=== PATIENT | female | born 1995 | race Caucasian/White ===

== ENCOUNTER 2016-08-20 10:26 | Outpatient (RCR) | payer BC ==
--- NOTE | 2016-08-15 15:40 | Diagnostic Imaging Report ---
INDICATION: Nephrolithiasis. TECHNIQUE: KUB at 2:32 p.m. FINDINGS: Bowel gas pattern is normal. There are no pathologic masses or calcifications seen. Osseous structures appear normal. IMPRESSION: Negative abdomen. Dictated by: Dictated on workstation # [id number]
[~2016-08-20 10:26] MED LIST: HYDR-3876 PO; HYDR-757 PO; NITR-65 PO; NORE-73 PO; PHEN-640 PO; oral birth control
[2016-08-24 16:41] LABS: STONE RISK AMMONIUM 49 mEq/24hr (14-62); STONE RISK BRUSHITE 3.37 (< 2.00); STONE RISK CA OXALATE 1.02 (< 2.00); STONE RISK CALCIUM 368 mg/day (< 250); STONE RISK CITRATE 472 mg/day (> 320); STONE RISK CREATININE 2417 mg/day (600-1800); STONE RISK MAGNESIUM 166 mg/day (> 60); STONE RISK OXALATE 29 mg/day (< 45); STONE RISK PH 6.9 (5.5-7.0); STONE RISK PHOSPHOROUS 1054 mg/day (< 1100); STONE RISK POTASSIUM 86 mEq/24hr (19-135); STONE RISK SODIUM 268 mEq/24hr (< 200); STONE RISK SODIUM URATES 2.76 (< 2.00); STONE RISK STRUVITE 7.19 (< 75.00); STONE RISK SULFITE 30 mmol/day (< 30); STONE RISK TOTAL VOLUME 3.03 L/day (> 2.00); STONE RISK URIC ACID 1118 mg/day (< 700); STONE RISK URIC ACID SAT 0.23 (< 2.00)
== END 2016-11-13 | disposition home or self-care (01) ==
LOC: RAD 10:26
PROVIDERS: ATTEND Urology
DX: N20.0 Calculus of kidney (principal)
CPT/HCPCS: 74000; 82140; 82340; 82507; 82570; 83735; 83945; 83986; 84105; 84133; 84300; 84392; 84560

== ENCOUNTER → 2018-09-17 | Outpatient (CLI) | payer BC ==
[~2018-09-17] MED LIST changes: +HYDR-4226 PO; -HYDR-757 PO
--- NOTE | 2018-09-17 18:09 | Diagnostic Imaging Report ---
EXAMINATION: Supine abdomen at 5:40 p.m. INDICATION: Bloating and constipation. A single view was obtained. FINDINGS: In the interval since the prior exam of 08/15/2016, the amount of gas within the ascending and transverse colon has increased. There is also some gas in the distal descending colon and in the small bowel. This appearance, however, is nonspecific. There is no sign of a bowel obstruction. There is only a moderate amount of fecal material throughout the ascending colon. There is no mass or organomegaly identified. The osseous structures are intact. IMPRESSION: 1. There has been an increase in the amount of gas throughout the ascending and transverse colon since the prior exam. However, this appearance is nonspecific. There is no evidence for a bowel obstruction. 2. There is only a moderate amount of fecal material throughout the ascending colon. 3. There is no acute abnormality noted otherwise. Dictated by: Dictated on workstation # [id number]
== END ==
LOC: RAD 17:31
PROVIDERS: ATTEND Nurse Practitioner Family
DX: R14.0 Abdominal distension (gaseous) (principal); K59.00 Constipation, unspecified
CPT/HCPCS: 74018

== ENCOUNTER → 2020-04-04 | Outpatient (CLI) | payer BC | LOC: LAB 19:56 | PROVIDERS: ATTEND Nurse Practitioner | DX: J02.9 Acute pharyngitis, unspecified (principal); R50.9 Fever, unspecified; R52 Pain, unspecified; Z20.828 Contact with and (suspected) exposure to other viral communicable diseases | CPT/HCPCS: 87804; U0002; 87635 ==

== ENCOUNTER → 2021-04-11 | Outpatient (CLI) | payer BC ==
[~2021-04-11] MED LIST changes: -HYDR-3876 PO; +HYDR-3920 PO
--- NOTE | 2021-04-11 07:54 | Diagnostic Imaging Report ---
Indication: Kidney stones A supine view the abdomen shows no abnormally dilated loops of bowel. No urinary tract stones are evident. There is no bony abnormality. IMPRESSION: No acute abnormality is seen. Dictated by: Dictated on workstation # [id number]
--- NOTE | 2021-04-11 07:54 | Diagnostic Imaging Report ---
PROCEDURE: CT urinary tract, rule out kidney stone. TECHNIQUE: Multiple contiguous axial images were obtained through the abdomen and pelvis without the use of intravenous contrast. Auto Exposure Controls were utilized during the CT exam to meet ALARA standards for radiation dose reduction. INDICATION: Left kidney pain. Left flank pain Comparison is made with a prior study from 07/02/2015. Lung bases are clear. The liver, gallbladder and bile ducts are normal. The spleen, pancreas and adrenals are normal. Kidneys are normal in size, shape and position. There is no mass, calculus or hydronephrosis seen on either side. The ureters and bladder are normal. There is no adnexal mass. There is fecal material in the left half of the colon consistent with mild constipation. There are no abnormally dilated loops of bowel with no acute bowel abnormality evident. A portion of the appendix may be visualized and is normal where seen. There is no ascites. There is no adenopathy. There is no acute bony abnormality. IMPRESSION: No acute abnormality is seen. Dictated by: Dictated on workstation # [id number]
== END ==
LOC: RAD 07:07
PROVIDERS: ATTEND Urology
DX: N20.0 Calculus of kidney (principal)
CPT/HCPCS: 74018; 74176

== ENCOUNTER 2021-05-13 17:45 | Emergency (ER) | payer BC ==
[~2021-05-13] VITALS: Ht 177 cm; Wt 68.0 kg
[2021-05-13 18:13] LABS: BASOPHILS # (AUTO) 0.1 10^3/uL (0.0-0.1); BASOPHILS % (AUTO) 1 % (0-10); EOSINOPHILS % (AUTO) 0 % (0-10); HEMATOCRIT 39 % (35-52); HEMOGLOBIN 13.3 g/dL (11.5-16.0); LYMPHOCYTES % (AUTO) 6 % (12-44); MEAN CORPUSCULAR HEMOGLOBIN 32 pg (25-34); MEAN CORPUSCULAR HGB CONC 34 g/dL (32-36); MEAN CORPUSCULAR VOLUME 94 fL (80-99); MEAN PLATELET VOLUME 9.5 fL (9.0-12.2); MONOCYTES # (AUTO) 1.4 10^3/uL (0.0-1.0); MONOCYTES % (AUTO) 9 % (0-12); NEUTROPHILS % (AUTO) 84 % (42-75); PLATELET COUNT 253 10^3/uL (130-400); WHITE BLOOD COUNT 15.5 10^3/uL (4.3-11.0)
[2021-05-13 18:15] LABS: BILIRUBIN,URINE NEGATIVE (NEGATIVE); CLARITY,URINE CLOUDY; COLOR,URINE YELLOW; GLUCOSE, URINE (UA) NEGATIVE (NEGATIVE); KETONES,URINE NEGATIVE (NEGATIVE); LEUKOCYTE ESTERASE ,URINE 2+ (NEGATIVE); NITRITE,URINE POSITIVE (NEGATIVE); PROTEIN,URINE 1+ (NEGATIVE)
[2021-05-13] MEDS ORDERED: cefTRIAXone 1,000 MG in WATER (STERILE) FOR INJECTION 10 ML IV ONE (18:15)
[2021-05-13] MEDS ORDERED: IBUPROFEN 800 MG (MOTRIN) TAB PO ONE (18:15)
[2021-05-13] MEDS ORDERED: fentaNYL INJ 100 MCG/2 ML AMP IVP PRN (18:15)
[2021-05-13] MEDS ORDERED: LACTATED RINGERS 1,000 ML IV SCH (18:15)
[2021-05-13 18:25] LABS: ALBUMIN 3.8 GM/DL (3.2-4.5); POTASSIUM 3.7 MMOL/L (3.6-5.0)
[2021-05-13 18:26] LABS: CALCIUM 9.5 MG/DL (8.5-10.1)
[2021-05-13 18:28] LABS: TOTAL PROTEIN 6.7 GM/DL (6.4-8.2)
--- NOTE | 2021-05-13 18:28 | ED GU-Female ---
General Chief Complaint: - Reproductive Stated Complaint: LOW BACK PAIN/HIS OF KIDNEY STONES Source: patient Exam Limitations: no limitations (JIM CURRIE APRN) History of Present Illness Date Seen by Provider: May 13, 2021 Time Seen by Provider: 18:00 Initial Comments ER with a 2 to 3-day history of bilateral flank pain right greater than left, low back pain, general malaise and fever. Timing/Duration: constant, getting worse Severity/Quality: moderate Location: unknown Radiation: none Activities at Onset: none Associated Symptoms: nausea/vomiting (JIM CURRIE APRN) Allergies and Home Medications Allergies Coded Allergies: No Known Drug Allergies (Unverified , 07/02/15) Patient Home Medication List Home Medication List Reviewed: Yes (JIM CURRIE APRN) Hydrocodone/Acetaminophen (Lorcet Hd 10-325 mg Tablet) 1 Each Tablet, 1-2 TAB PO Q4H PRN for PAIN Prescribed by: MATEUS URIAS on 07/04/15 1118 Levofloxacin (Levofloxacin) 500 Mg Tablet, 500 MG PO DAILY Prescribed by: JIM CURRIE on 05/13/21 1909 Nitrofurantoin Monohyd/M-Cryst (Macrobid 100 mg Capsule) 100 Mg Capsule, 100 MG PO BID Prescribed by: MATEUS URIAS on 07/04/15 1115 Norethindrone AC-Eth Estradiol (Neelima 1.5 mg-30 Mcg Tablet) 1 Each Tablet, 1 TAB PO DAILY, (Reported) Entered as Reported by: RADHA PAZ on 07/03/15 1016 Phenazopyridine HCl (Pyridium) 200 Mg Tablet, 200 MG PO TID PRN for PAIN Prescribed by: MATEUS URIAS on 07/04/15 1118 Review of Systems Review of Systems Constitutional: see HPI, chills, fever EENTM: see HPI Respiratory: no symptoms reported Cardiovascular: no symptoms reported Gastrointestinal: No abdominal pain, No nausea, No vomiting Genitourinary: no symptoms reported Musculoskeletal: no symptoms reported Skin: no symptoms reported Psychiatric/Neurological: No Symptoms Reported Endocrine: No Symptoms Reported (JIM CURRIE APRN) Past Dmjimsi-Djtuki-Jpvabt Hx Immunizations Up To Date Tetanus Booster (TDap): Unknown (JIM CURRIE APRN) Past Medical History Currently Using CPAP: No Currently Using BIPAP: No Reproductive Disorders: No Sexually Transmitted Disease: No HIV/AIDS: No (JIM CURRIE APRN) Family Medical History Diabetes mellitus 19 FATHER FH: hypothyroidism 19 MOTHER FHx: gluten enteropathy 19 MOTHER Physical Exam Vital Signs Vital Signs - First Documented 05/13/21 17:50 Temp 38.2 Pulse 124 Resp 18 B/P (MAP) 143/87 (105) Pulse Ox 98 O2 Delivery Room Air (YOEL CHU DO) Vital Signs Capillary Refill : (JIM CURRIE APRN) Height, Weight, BMI Height: 5'10.00" Weight: 150lbs. 0.0oz. 68.488438uc; BMI Method: General Appearance: WD/WN, no apparent distress HEENT: PERRL/EOMI, normal ENT inspection Neck: non-tender, full range of motion Cardiovascular: no murmur, tachycardia Respiratory: no respiratory distress, no accessory muscle use Gastrointestinal: normal bowel sounds, non tender, soft Back: CVA tenderness (R), CVA tenderness (L) Extremities: normal range of motion, non-tender Neurologic/Psychiatric: alert, normal mood/affect, oriented x 3 Skin: normal color, warm/dry (JIM CURRIE APRN) Focused Exam Lactate Level 05/13/21 18:05: Lactic Acid Level 1.48 (YOEL HCU DO) Progress/Results/Core Measures Suspected Sepsis SIRS Temperature: Pulse: Respiratory Rate: Laboratory Tests 05/13/21 18:05: White Blood Count 15.5H Blood Pressure / Mean: 05/13/21 18:05: Lactic Acid Level 1.48 Laboratory Tests 05/13/21 18:05: Creatinine 0.93, INR Comment 1.1, Platelet Count 253, Total Bilirubin 0.7 (JIM CURRIE APRN) Results/Orders Lab Results Laboratory Tests Test 05/13/21 17:52 05/13/21 18:05 Range/Units Urine Color YELLOW Urine Clarity CLOUDY Urine pH 7.0 5-9 Urine Specific Firestone 1.015 L 1.016-1.022 Urine Protein 1+ H NEGATIVE Urine Glucose (UA) NEGATIVE NEGATIVE Urine Ketones NEGATIVE NEGATIVE Urine Nitrite POSITIVE H NEGATIVE Urine Bilirubin NEGATIVE NEGATIVE Urine Urobilinogen 1.0 < = 1.0 MG/DL Urine Leukocyte Esterase 2+ H NEGATIVE Urine RBC (Auto) 3+ H NEGATIVE Urine RBC 25-50 H /HPF Urine WBC 25-50 H /HPF Urine Crystals NONE /LPF Urine Bacteria MODERATE H /HPF Urine Casts NONE /LPF Urine Mucus NEGATIVE /LPF Urine Culture Indicated CULTURE PENDING White Blood Count 15.5 H 4.3-11.0 10^3/uL Red Blood Count 4.17 3.80-5.11 10^6/uL Hemoglobin 13.3 11.5-16.0 g/dL Hematocrit 39 35-52 % Mean Corpuscular Volume 94 80-99 fL Mean Corpuscular Hemoglobin 32 25-34 pg Mean Corpuscular Hemoglobin Concent 34 32-36 g/dL Red Cell Distribution Width 11.7 10.0-14.5 % Platelet Count 253 130-400 10^3/uL Mean Platelet Volume 9.5 9.0-12.2 fL Immature Granulocyte % (Auto) 1 % Neutrophils (%) (Auto) 84 H 42-75 % Lymphocytes (%) (Auto) 6 L 12-44 % Monocytes (%) (Auto) 9 0-12 % Eosinophils (%) (Auto) 0 0-10 % Basophils (%) (Auto) 1 0-10 % Neutrophils # (Auto) 13.0 H 1.8-7.8 10^3/uL Lymphocytes # (Auto) 1.0 1.0-4.0 10^3/uL Monocytes # (Auto) 1.4 H 0.0-1.0 10^3/uL Eosinophils # (Auto) 0.0 0.0-0.3 10^3/uL Basophils # (Auto) 0.1 0.0-0.1 10^3/uL Immature Granulocyte # (Auto) 0.1 0.0-0.1 10^3/uL Neutrophils % (Manual) 83 % Lymphocytes % (Manual) 5 % Monocytes % (Manual) 7 % Basophils % (Manual) 1 % Band Neutrophils 4 % Blood Morphology Comment NORMAL Prothrombin Time 14.7 12.2-14.7 SEC INR Comment 1.1 0.8-1.4 Activated Partial Thromboplast Time 41 H 24-35 SEC Sodium Level 135 135-145 MMOL/L Potassium Level 3.7 3.6-5.0 MMOL/L Chloride Level 104 98-107 MMOL/L Carbon Dioxide Level 19 L 21-32 MMOL/L Anion Gap 12 5-14 MMOL/L Blood Urea Nitrogen 9 7-18 MG/DL Creatinine 0.93 0.60-1.30 MG/DL Estimat Glomerular Filtration Rate 73 BUN/Creatinine Ratio 10 Glucose Level 118 H 70-105 MG/DL Lactic Acid Level 1.48 0.50-2.00 MMOL/L Calcium Level 9.5 8.5-10.1 MG/DL Corrected Calcium 9.7 8.5-10.1 MG/DL Total Bilirubin 0.7 0.1-1.0 MG/DL Aspartate Amino Transf (AST/SGOT) 17 5-34 U/L Alanine Aminotransferase (ALT/SGPT) 19 0-55 U/L Alkaline Phosphatase 61 40-136 U/L Total Protein 6.7 6.4-8.2 GM/DL Albumin 3.8 3.2-4.5 GM/DL Serum Test, Qualitative NEGATIVE NEGATIVE (YOEL CHU DO) Medications Given in ED Current Medications Medications Dose Ordered Sig/Alexa Route Start Time Stop Time Status Last Admin Dose Admin Ceftriaxone Sodium 1000 mg/ Sterile Water 10 ml @ 200 mls/hr ONCE ONCE IV 05/13/21 18:15 05/13/21 18:17 DC 05/13/21 18:20 200 MLS/HR Fentanyl Citrate 25 mcg ONCE PRN IVP 05/13/21 18:15 05/13/21 19:27 DC 05/13/21 18:15 25 MCG Ibuprofen 800 mg ONCE ONCE PO 05/13/21 18:15 05/13/21 18:16 DC 05/13/21 18:15 800 MG (YOEL CHU DO) Vital Signs/I&O 05/13/21 05/13/21 17:50 19:21 Temp 38.2 Pulse 124 104 Resp 18 18 B/P (MAP) 143/87 (105) 114/82 Pulse Ox 98 98 O2 Delivery Room Air Room Air (YOEL CHU DO) Vital Signs/I&O Capillary Refill : (JIM CURRIE APRN) Departure Communication (Admissions) 1906-heart rate down to 101. Blood pressure 140s over 70s. Leukocytosis. She does have a pyelonephritis clinically supported by labs and urine. We will give Rocephin and discharged home on Levaquin. A couple of months ago she had a urinary tract infection and was given Augmentin but does not feel like she ever got over it. She is not nauseated though I will give her a prescription for Zofran in case she becomes nauseated this evening. (JIM CURRIE APRN) Impression Primary Impression: Pyelonephritis Disposition: 01 HOME, SELF-CARE Condition: Stable Departure-Patient Inst. Decision time for Depature: 19:07 (JIM CURRIE APRN) Referrals: DILAN MCCLELLAN DO (PCP/Family) Primary Care Physician Patient Instructions: Kidney Infection Add. Discharge Instructions: 1. Return to ER for any concerns 2. Follow-up with your doctor next week 3. Antibiotics as directed starting tomorrow. All discharge instructions reviewed with patient and/or family. Voiced understanding. Scripts Levofloxacin (Levofloxacin) 500 Mg Tablet 500 MG PO DAILY, #7 TAB Prov: JIM CURRIE APRN 05/13/21 ATTENDING PHYSICIAN NOTE: I WAS PHYSICALLY PRESENT ER PHYSICIAN WHEN THIS PATIENT WAS IN ER, BUT I WAS NOT INVOLVED IN DECISION MAKING OR ANY CARE OF THIS PATIENT. (YOEL CHU DO) JIM CURRIE APRN May 13, 2021 18:28 YOEL CHU DO May 14, 2021 04:31
[2021-05-13 18:29] LABS: BILIRUBIN,TOTAL 0.7 MG/DL (0.1-1.0); INR 1.1 (0.8-1.4); PROTHROMBIN TIME PATIENT 14.7 SEC (12.2-14.7)
[2021-05-13 18:31] LABS: CREATININE SERUM 0.93 MG/DL (0.60-1.30)
[2021-05-13 18:39] LABS: BACTERIA,URINE MODERATE /HPF; RBC,URINE 25-50 /HPF; WBC,URINE 25-50 /HPF
[2021-05-13 18:43] LABS: BAND NEUTROPHILS 4 %; BASOPHILS % (MANUAL) 1 %; LYMPHOCYTES % (MANUAL) 5 %; MONOCYTES % (MANUAL) 7 %; NEUTROPHILS % (MANUAL) 83 %; RBC MORPH NORMAL
--- NOTE | 2021-05-13 19:01 | Diagnostic Imaging Report ---
INDICATION: Back pain, history of nephrolithiasis FINDINGS: The lungs are clear. There is no failure, effusion or pneumothorax. No free air beneath the diaphragms. IMPRESSION: Normal frontal chest x-ray Dictated by: Dictated on workstation # [id number]
[2021-05-13] MEDS ORDERED: RX-ONDANSETRON 4 MG ODT (ZOFRAN) PPK #4 PO STA (19:05)
[2021-05-13] MEDS ORDERED: LEVO500T80 PO (19:09)
[2021-05-13 19:21] VITALS: BP 114/82
== END 2021-05-13 19:21 | disposition home or self-care (01) ==
LOC: EDUNIT# 17:45 → ER 17:48
DX: N12 Tubulo-interstitial nephritis, not specified as acute or chronic (principal)
CPT/HCPCS: 36415; 71045; 80053; 81000; 83605; 84703; 85007; 85027; 85610; 85730; 87040; 87077; 87088; 87186

== ENCOUNTER → 2021-05-29 | Outpatient (CLI) | payer BC ==
[~2021-05-29] MED LIST changes: +LEVO500T80 PO
--- NOTE | 2021-05-29 15:35 | Diagnostic Imaging Report ---
PROCEDURE: US PELVIC (NON OB) TECHNIQUE: Multiple real-time grayscale images were obtained over the pelvis in various projections transabdominally. INDICATION: Right adnexal fullness. COMPARISON: There are no prior studies available for comparison. FINDINGS: The uterus is nongravid and not enlarged measuring 5.6 x 2.2 x 3.4 cm. The endometrial lining is not thickened measuring 3 mm. There is no focal mass involving the uterus to suggest a fibroid. The cervix is generally unremarkable. Both ovaries were identified. There is good blood flow to each ovary, and there is no sign of torsion. There is no pelvic mass or free fluid collection noted. IMPRESSION: There is no acute pelvic abnormality noted. Dictated by: Dictated on workstation # [id number]
== END ==
LOC: RAD 12:57
PROVIDERS: ATTEND Family Medicine
DX: R10.2 Pelvic and perineal pain (principal)
CPT/HCPCS: 76856